=== PATIENT | female | born 1960 | race Caucasian/White ===

== ENCOUNTER 2016-05-16 15:49 | Emergency (ER) | payer OTHER, MEDICAID ==
--- NOTE | 2016-05-16 17:56 | UC ---
Respiratory Complaint HPI - History of Current Complaint Chief Complaint: UCGeneralIllness Stated Complaint: COUGH,EAR PAIN Time Seen by Provider: 05/16/16 17:18 Hx Obtained From: Patient ?: Yes Onset/Duration: Sudden Onset, Lasting Days - 3, Still Present, Worse Since - today Severity Initially: Mild Severity Currently: Moderate Character: Cough: Nonproductive Associated Signs And Symptoms: Positive: Dyspnea, Wheezing, URI, Nasal Congestion, Hoarseness Related History: Seasonal Allergies - Risk Factors Pulmonary Embolism Risk Factors: Negative Cardiac Risk Factors: Negative - Allergies/Home Medications Allergies/Adverse Reactions: Allergies Allergy/AdvReac Type Severity Reaction Status Date / Time No Known Allergies Allergy Verified 05/16/16 17:08 Home Medications: Home Medications Naproxen [Naproxen 500 MG TABS] 500 mg PO BID PRN 05/16/16 [History Confirmed ] busPIRone TAB* [Buspar TAB*] 10 mg PO TID PRN 05/16/16 [History Confirmed ] PMH/Surg Hx/FS Hx/Imm Hx Cardiovascular History Of: Denies: Hypertension Respiratory History Of: Denies: Asthma - Surgical History Surgical History: Yes Surgery Procedure, Year, and Place: hysterectomy - Family History Known Family History: Positive: Diabetes Negative: Cardiac Disease, Hypertension - Social History Occupation: Employed Full-time Lives: With Family Alcohol Use: None Substance Use Type: None Smoking Status (MU): Never Smoked Tobacco Review of Systems ENT: Sore Throat Respiratory: Shortness Of Breath, Cough Cardiovascular: Chest Pain - with coughing All Other Systems Reviewed And Are Negative: Yes Physical Exam Triage Information Reviewed: Yes Appearance: No Pain Distress, Well-Nourished, Ill-Appearing - mildly Vital Signs: Initial Vital Signs Temp 99.8 F 05/16/16 17:10 Pulse 97 05/16/16 17:10 Resp 18 05/16/16 17:10 BP 133/81 05/16/16 17:10 Pulse Ox 97 05/16/16 17:10 Vital Signs Reviewed: Yes Eyes: Positive: Conjunctiva Clear ENT: Positive: Pharynx normal, Nasal congestion, TMs normal Neck exam: Normal Respiratory: Positive: Lungs clear, Wheezing - with coughing. Cardiovascular Exam: Normal Musculoskeletal Exam: Normal Neurological Exam: Normal Psychological Exam: Normal Skin Exam: Normal UC Diagnostic Evaluation - Laboratory O2 Sat by Pulse Oximetry: 97 Respiratory Course/Dx - Differential Dx/Diagnosis Differential Diagnosis/HQI/PQRI: Asthma - Acute URI Acute bronchospasm, Lower Resp Infection, Sinusitis Provider Diagnoses: Acute URI. Acute bronchospasm Discharge - Discharge Plan Condition: Stable Disposition: HOME Prescriptions: predniSONE TAB* [Deltasone TAB*] 20 mg PO DAILY #18 tab Patient Education Materials: Upper Respiratory Infection (ED), Bronchospasm (ED ), How to Use a Metered-Dose Inhaler and a Spacer (ED)
[2016-05-16] MEDS ORDERED: Albuterol HFA INHALER* 8 gm MDI INH ONE (17:58)
== END 2016-05-16 19:09 | disposition home or self-care (01) ==
LOC: UCCORT 15:49
DX: J06.9 Acute upper respiratory infection, unspecified (principal); J98.01 Acute bronchospasm
CPT/HCPCS: 99202; A9270-GY; G0463